=== PATIENT | female | born 1955 | race Caucasian/White ===

== ENCOUNTER 2018-01-31 16:42 | Emergency (ER) | payer MEDICARE, BC ==
[~2018-01-31] VITALS: Ht 170.2 cm; Wt 97.5 kg
[~2018-01-31 16:42] MED LIST: ACETAMINOPHEN-1 EAC1 PO; ALDACTONE50 MG PO; ASPIRIN EC325 M1 PO; ASPIRIN81 M2 PO; CARVEDILOL25 MG PO; LANOXIN 0.120.125 M1 PG; LASIX 40 MG TAB40 M2 PO; LEVOTHYROXINE0.05 MG PO; LIPITOR 20 MG T20 M1 PO; LISINOPRIL10 MG PO; PAXIL10 MG PO; PROGRAF1 MG PO; TRAZODONE 150150 M1 PO; VENTOLIN HFA 1818 GM; VITAMIN D 5050000 I1 PO; VITAMIN D2000 UNIT PO
[2018-01-31] MEDS ORDERED: OXYCODONE HCL 55 MG PO (16:50)
[2018-01-31] MEDS ORDERED: FENOFIBRATE145 M1 PO (16:51)
[2018-01-31] MEDS ORDERED: RAPAMUNE2 MG PO (16:51)
[2018-01-31] MEDS ORDERED: CALCIUM 600 +1 EAC1 PO (16:51)
[2018-01-31] MEDS ORDERED: JANUVIA50 MG PO (16:52)
[2018-01-31] MEDS ORDERED: FISH OIL 1,001000 M2 PO (16:52)
[2018-01-31] MEDS ORDERED: GLIPIZIDE 10 MG10 MG PO (16:52)
[2018-01-31] MEDS ORDERED: JARDIANCE25 MG PO (16:53)
[2018-01-31 17:46] VITALS: BP 136/72
== END 2018-01-31 17:47 | disposition home or self-care (01) ==
LOC: M.ERS 16:42
DX: M25.511 Pain in right shoulder (principal); F17.210 Nicotine dependence, cigarettes, uncomplicated; Z88.8 Allergy status to other drugs, medicaments and biological substances; Z88.6 Allergy status to analgesic agent; Z88.0 Allergy status to penicillin